=== PATIENT | female | born 1940 | race Caucasian/White ===

== ENCOUNTER 2020-11-28 15:49 | Outpatient (REF) | payer MEDICARE, OTHER, SELFPAY ==
--- NOTE | ~2020-11-28 | MM_ITS ---
EXAMINATION: MM SCREENING DIGITAL BREAST TOMOSYNTHESIS, RIGHT CLINICAL INFORMATION: Prior history left mastectomy for breast cancer 2015. Right excisional biopsy for ADH 01/25/2016. Due for yearly exam. COMPARISON: Mammography: 09/15/2019, 09/10/2018, 08/02/2017, 07/31/2016, 01/25/2016 TECHNIQUE: Digital breast tomosynthesis is performed in both the craniocaudal and mediolateral oblique views along with computer-aided detection (CAD). Synthesized 2D images are generated from the tomosynthesis. FINDINGS: The breasts are heterogeneously dense, which may obscure small masses (ACR BI-RADS breast composition Category c). Parenchymal pattern is similar to prior exams. There is some minor scarring posterior upper breast consistent with the lumpectomy 2016. There is a biopsy clip marker again seen mid upper outer quadrant. There is no developing density or interval mass or architectural abnormality. There are scattered punctate and fine and vascular calcifications. No significant changes. MM/MM tomosynthesis screening RT IMPRESSION: No significant changes from prior exams. ASSESSMENT: BI-RADS 2: Benign RECOMMENDATION: Routine annual mammography screening. This patient's information was entered into a reminder system with a target due date for their next mammogram.
== END 2020-11-28 15:50 | disposition home or self-care (01) ==
LOC: HO.MAMMO 15:49
PROVIDERS: PCP Internal Medicine; Visit Provider Internal Medicine
DX: Z12.31 Encounter for screening mammogram for malignant neoplasm of breast (principal)
CPT/HCPCS: 77063; 77067

== ENCOUNTER → 2020-12-12 15:36 | Outpatient (BNV) | payer MEDICARE, OTHER, SELFPAY | PROVIDERS: PCP Internal Medicine; Visit Provider Internal Medicine | DX: C50.911 Malignant neoplasm of unspecified site of right female breast (principal) | CPT/HCPCS: 99213; 99214 ==

== ENCOUNTER 2022-05-12 09:00 | Outpatient (REF) | payer MEDICARE, OTHER, SELFPAY ==
[2022-05-12 11:10] LABS: MANUAL DIFF FLAG NO
[2022-05-12 11:16] LABS: Basophils Percent Auto 0.3 % (0-2); Eosinophils Percent Auto 0.6 % (0-4); Hematocrit 38.8 % (37.0-47.0); Hemoglobin 12.7 g/dl (12.0-16.0); Imm Gran Abs Auto 0.01 X10*3/uL (0.00-0.03); Imm Gran Pct Auto 0.3 % (0.0-0.4); Lymphocytes Absolute Auto 1.6 X10*3/uL (1.2-4.9); Lymphocytes Percent Auto 49.1 % (20-40); Mean Corpuscular HGB Conc 32.7 g/dl (31.0-35.0); Mean Corpuscular Hemoglobin 31.6 pg (27.0-33.0); Mean Corpuscular Volume 96.5 fL (80.0-98.0); Mean Platelet Volume 10.7 fL (9.4-12.3); Monocytes Absolute Auto 0.5 X10*3/uL (0.1-1.2); Monocytes Percent Auto 15.5 % (2-11); Neutrophils Absolute Auto 1.1 x10*3/uL (2.0-8.3); Neutrophils Percent Auto 34.2 % (45-73); Platelet Count 218 X10*3/uL (160-400); Red Blood Count 4.02 X10*6/uL (4.20-5.50); Red Cell Distribution Width 12.9 % (11.0-16.0); White Blood Count 3.2 X10*3/uL (4.8-10.8)
[2022-05-12 11:28] LABS: Appearance Urine CLEAR; Color Urine YELLOW; Glucose Urine UA NEG (NEG); Leukocyte Esterase Urine NEG (NEG); Nitrite Urine NEG (NEG); Specific Gravity - Urine 1.025 (1.005-1.025); Urine Blood TRACE (NEG); Urine Ketones NEG (NEG); Urine Protein NEG (NEG-TRACE)
[2022-05-12 11:38] LABS: Alanine Aminotransferase 13 U/L (0-31); Alkaline Phosphatase 60 U/L (39-117); Anion Gap 15 (12-20); Aspartate Amino Transferase 16 U/L (5-31); Bilirubin Total 0.4 mg/dL (0.0-1.0); Blood Urea Nitrogen 15 mg/dL (9-16); Carbon Dioxide 26 mmol/L (22-29); Chloride 105 mmol/L (96-108); Cholesterol 142 mg/dL; Estimated Glomerular Filt Rate > 60; Glucose Fasting 101 mg/dL (60-99); HDL Cholesterol 56 mg/dL; LDL Cholesterol Calculated 75 mg/dl; Potassium 4.5 mmol/L (3.3-5.1); Sodium 141 mmol/L (135-145); Triglycerides 58 mg/dL
[2022-05-12 11:57] LABS: Bacteria Urine 2+ /LPF; RBC Urine 0-2 /HPF (0); Squamous Epithelial Cell Urine TRACE /LPF
[2022-05-12 12:03] LABS: Thyroid Stimulating Hormone 0.64 uIU/mL (0.32-4.0); Vitamin D 25-OH Total 69.3 ng/mL (>30)
== END 2022-05-12 09:01 | disposition home or self-care (01) ==
LOC: HO.HMGCLDS 09:00
PROVIDERS: PCP Internal Medicine; Visit Provider Internal Medicine
DX: Z00.00 Encounter for general adult medical examination without abnormal findings (principal); I10 Essential (primary) hypertension; E78.00 Pure hypercholesterolemia, unspecified
CPT/HCPCS: 36415; 80053; 80061; 81001; 82306; 84443; 85025

== ENCOUNTER 2022-12-08 13:01 | Outpatient (REF) | payer MEDICARE, OTHER, SELFPAY ==
[2022-12-08 13:34] LABS: MANUAL DIFF FLAG NO
[2022-12-08 13:36] LABS: Appearance Urine Clear; Color Urine Yellow; Glucose Urine UA Negative (Negative); Leukocyte Esterase Urine Small (1+) (Negative); Nitrite Urine Negative (Negative); PH 7.5 (5.0-9.0); UMIC TRIGGER UA YES; Urine Blood Negative (Negative); Urine Ketones Negative (Negative); Urine Protein Negative (Neg-Trace)
[2022-12-08 13:45] LABS: Bacteria Urine None Seen (None Seen); Hyaline Casts Urine 0-2 /LPF (0-2); RBC Urine 0-2 /HPF (0-2); Squamous Epithelial Cell Urine 0-2 /HPF (0-2); WBC Urine 0-5 /HPF (0-5)
[2022-12-08 13:46] LABS: Basophils Absolute Auto 0.1 X10*3/uL (0.0-0.2); Basophils Percent Auto 0.8 % (0-2); Eosinophils Absolute Auto 0.1 X10*3/uL (0.0-0.4); Eosinophils Percent Auto 1.9 % (0-4); Hematocrit 38.5 % (37.0-47.0); Hemoglobin 12.8 g/dl (12.0-16.0); Imm Gran Abs Auto 0.03 X10*3/uL (0.00-0.03); Imm Gran Pct Auto 0.5 % (0.0-0.4); Lymphocytes Absolute Auto 1.9 X10*3/uL (1.2-4.9); Mean Corpuscular HGB Conc 33.2 g/dl (31.0-35.0); Mean Corpuscular Hemoglobin 32.3 pg (27.0-33.0); Mean Corpuscular Volume 97.2 fL (80.0-98.0); Mean Platelet Volume 10.7 fL (9.4-12.3); Monocytes Absolute Auto 0.6 X10*3/uL (0.1-1.2); Neutrophils Absolute Auto 3.7 x10*3/uL (2.0-8.3); Neutrophils Percent Auto 56.8 % (45-73); Platelet Count 261 X10*3/uL (160-400); Red Blood Count 3.96 X10*6/uL (4.20-5.50); Red Cell Distribution Width 13.1 % (11.0-16.0); White Blood Count 6.4 X10*3/uL (4.8-10.8)
== END 2022-12-08 13:02 | disposition home or self-care (01) ==
LOC: HO.HMGCLDS 13:01
PROVIDERS: PCP Internal Medicine; Visit Provider Internal Medicine
DX: I10 Essential (primary) hypertension (principal)
CPT/HCPCS: 36415; 81001; 85025

== ENCOUNTER 2023-07-08 07:26 | Outpatient (REF) | payer MEDICARE, OTHER, SELFPAY ==
--- NOTE | ~2023-07-08 | MM_ITS ---
EXAMINATION: MM SCREENING DIGITAL BREAST TOMOSYNTHESIS, RIGHT CLINICAL INFORMATION: Screening. Asymptomatic. The patient is status post left mastectomy. COMPARISON: Mammography: This study is compared with prior exams dating back to TECHNIQUE: Digital breast tomosynthesis is performed in both the craniocaudal and mediolateral oblique views along with computer-aided detection (CAD). Synthesized 2D images are generated from the tomosynthesis. FINDINGS: There are scattered areas of fibroglandular density (ACR BI-RADS breast composition Category b). In the upper outer quadrant of the right breast, there are 2 groups of calcification. The smaller of the 2 groups is located in the anterior depth.. The larger group of calcifications located in the deep third of the breast. Magnification imaging of these calcifications is indicated. There are other, scattered calcifications present in the right which are mammographically benign. These are distinct from the calcifications recommended for additional mammographic imaging. There is a tissue marker present in the upper outer quadrant of the right breast from prior benign percutaneous biopsy. MM/MM tomosynthesis screening RT IMPRESSION: 2 groups of calcifications in the upper-outer quadrant of the right breast warrant additional mammographic imaging with magnification. This should also include a full lateral view of the right breast with tomosynthesis. This lateral view be helpful in assessing the pattern of the calcifications in question. ASSESSMENT: BI-RADS BI-RADS 0 - Incomplete: Needs additional Imaging. RECOMMENDATION: Additional views of the right breast Radiology department staff will contact the patient for additional imaging. Additional Imaging required This examination should not preclude the clinical evaluation of a suspicious palpable abnormality. This patient's information was entered into a reminder system with a target due date for their next mammogram.
== END 2023-07-08 07:27 | disposition home or self-care (01) ==
LOC: HO.MAMMO 07:26
PROVIDERS: Visit Provider Internal Medicine
DX: Z12.31 Encounter for screening mammogram for malignant neoplasm of breast (principal)
CPT/HCPCS: 77063; 77067

== ENCOUNTER → 2023-07-08 07:45 | Outpatient (BNV) | payer MEDICARE, OTHER, SELFPAY | PROVIDERS: Visit Provider Radiology Diagnostic Radiology | DX: Z12.31 Encounter for screening mammogram for malignant neoplasm of breast (principal); Z90.12 Acquired absence of left breast and nipple | CPT/HCPCS: 77063; 77067 ==

== ENCOUNTER 2023-07-29 08:49 | Outpatient (REF) | payer MEDICARE, OTHER, SELFPAY ==
--- NOTE | ~2023-07-29 | MM_ITS ---
EXAMINATION: MM DIAGNOSTIC DIGITAL MAMMOGRAPHY, RIGHT CLINICAL INFORMATION: 83-year-old female with complicated past history including left mastectomy for breast CA, and 2 site right stereotactic biopsy in 2015, of which the anterior marked by a cylinder biopsy was benign, however posterior biopsy marked by a top hat clip revealed atypical ductal hyperplasia (ADH), and excised. Patient now presenting for diagnostic mammography for increasing calcifications at 2 sites. COMPARISON: Mammography: 07/08/2023, 11/28/2020, 09/15/2019, 08/02/2017, 07/31/2016, Stereotactic biopsy (dual site) at [facility] 12/15/2015, and additional imaging at [facility] 12/09/2015, 12/06/2015, 10/15/2014, and dating back to 2012. TECHNIQUE: Digital mammography is performed in the following views: Spot magnification 2-D views in the right CC and ML projections. FINDINGS: There are scattered areas of fibroglandular density (ACR BI-RADS breast composition Category b). There are linear calcifications in the approximate 12:00 axis right breast, mid depth, which have not changed since 2020 and are benign. No further follow-up recommended. Markedly increasing microcalcifications are present at the lumpectomy site (which yielded ADH) approximate 9:00 axis right breast, posterior one third. These have a fine, pleomorphic appearance with several posterior radiating linear calcified structures, possibly ducts, although blood vessels may be a possibility although classic tram tracking is not present. Recommend stereotactic biopsy of these calcifications using a lateral to medial approach. In the medial 3:00 right breast, there is a subtle focus of increasing microcalcifications the similar characteristics, indeterminant, but given patient's high risk also recommended for stereotactic biopsy at the same time as the above biopsy. These could not be definitively seen on prior exams. Recommend a craniocaudal approach for these calcifications. MM/MM added views RT IMPRESSION: 2 site stereotactic biopsy recommended right breast at 9:00 and 3:00 as detailed above. Increasing pleomorphic fine calcifications are present. Extensive discussion was held with the patient and her . The patient degrees and understands the plan for 2 site stereotactic biopsy. ASSESSMENT: BI-RADS BI-RADS 4 - Suspicious finding RECOMMENDATION: Biopsy recommended
== END 2023-07-29 08:50 | disposition home or self-care (01) ==
LOC: HO.MAMMO 08:49
PROVIDERS: PCP Internal Medicine; Visit Provider Internal Medicine
DX: R92.1 Mammographic calcification found on diagnostic imaging of breast (principal)
CPT/HCPCS: 77065

== ENCOUNTER → 2023-07-29 09:00 | Outpatient (BNV) | payer MEDICARE, OTHER, SELFPAY | PROVIDERS: PCP Internal Medicine; Visit Provider Radiology Diagnostic Radiology | DX: R92.0 Mammographic microcalcification found on diagnostic imaging of breast (principal) | CPT/HCPCS: 77065 ==

== ENCOUNTER 2023-08-07 08:14 | Outpatient (AMB) | payer MEDICARE, OTHER, SELFPAY ==
--- NOTE | 2023-08-07 08:21 | A.OFFVIS_ITS ---
Intake Vital Signs 08/07/23 08:27 Height 5 ft 1 in Weight 103 lb BMI 19.5 Intake Visit Reasons: Stereo Bx calcs x2 areas 3 oclock and 9 o'clock Intake Note: Patient is seen in office for stereo biopsy consult for right breast calcifications x2 areas 3 o'clock & 9 o'clock. Patient c/o: reports no breast complaints at this time. mm:07/29/23 Property Field Inspector Required: No Accompanied by: Spouse Allergies Iodinated Contrast Media [IV CONTRAST] Allergy (Severe, Unverified 08/07/23 08:33) ANAPHYLAXIS codeine Allergy (Unknown, Verified 08/07/23 08:33) Unknown ibuprofen Allergy (Unknown, Verified 08/07/23 08:33) swelling morphine Allergy (Unknown, Verified 08/07/23 08:33) confusion/disorientationh IVP dye Allergy (Unknown, Uncoded 08/07/23 08:33) swelling HPI Stereo Bx calcs x2 areas 3 oclock and 9 o'clock HPI Details 83-year-old female here for right [address] calcifications. She had undergone a screening mammogram last month and was noted to have calcifications on the left breast. She was brought in for targeted diagnostic mammogram. This showed increasing, pleomorphic fine calcifications at the 09:00 o'clock and 03:00 o'clock positions of the right breast. A stereotactic biopsy was therefore recommended by the radiologist She otherwise denies any palpable breast masses or any nipple or skin changes. Her menarche was at age of 12. Her 1st was at age of 24. She had pregnancies. She had menopause in her 50s. She actually had left breast cancer and had undergone mastectomy in her late 30s. She is not interested in genetic testing however. [facility] Medical History (Updated 08/06/23 @ 12:03 by Isaías Horvath MD) Breast calcification, right HTN (hypertension) High cholesterol Surgical History H/O discectomy Hx of cholecystectomy History of modified radical mastectomy Family History Daughter Breast cancer Son Skin cancer Review of Systems Const Denies chills and Denies fever(s) Card Denies chest pain, Denies dyspnea and Denies dyspnea on exertion Resp Denies cough, Denies dyspnea and Denies dyspnea on exertion GI Denies hematochezia and Denies change in bowel habits Denies hematuria Musc Denies back pain and Denies limited range of motion Neuro Denies focal weakness and Denies convulsions Psych Denies depression and Denies mood swings Physical Exam Vital Signs: BMI result Body Mass Index 19.5 Const General: comfortable and no acute distress Orientation/consciousness: patient oriented x3 Neck Neck: Yes no lymphadenopathy Chest Other: mastectomy on the left breast; no palpable breast masses or any nipple or skin changes the right. No axillary lymphadenopathy Resp Auscultation: clear to auscultation bilaterally Cardio Rhythm: regular rhythm GI Palpation (GI): Soft to palpation, nontender and no guarding Neuro General: patient oriented x3 Assessment & Plan Assessment & Plan (1) Breast calcification, right: Code(s): R92.1 - Mammographic calcification found on diagnostic imaging of breast Plan: Her mammogram shows pleomorphic calcifications at the 03:00 o'clock and 9 o'clock position of the right breast. A stereotactic biopsy had been recommended by the radiologist. I reviewed with her the technique of this procedure. I will see her again in the office next week to discuss the path report. She does have personal history of breast cancer. At this, she does not want to proceed with genetic testing. Orders: Orders MM stereotactic biopsy RT 08/06/23 R92.1 - Mammographic calcification found on diagnostic imaging of breast MM stereotactic biopsy ea add 08/06/23 R92.1 - Mammographic calcification found on diagnostic imaging of breast Coding Level of Care Code New Pt Level 3 (45823) Diagnoses Breast calcification, right R92.1
[2023-08-07 08:27] VITALS: BMI 19.5
== END 2023-08-07 09:26 | disposition home or self-care (01) ==
PROVIDERS: PCP Internal Medicine; Visit Provider Surgery
DX: R92.1 Mammographic calcification found on diagnostic imaging of breast (principal)
CPT/HCPCS: 99203

== ENCOUNTER 2023-08-07 09:27 | Outpatient (REF) | payer MEDICARE, OTHER, SELFPAY ==
--- NOTE | ~2023-08-07 | MM_ITS ---
EXAMINATION: STEREOTACTIC TOMOSYNTHESIS-GUIDED VACUUM-ASSISTED 2 SITE BREAST BIOPSY, RIGHT SPECIMEN RADIOGRAPH, RIGHT POST PROCEDURE DIGITAL MAMMOGRAM, RIGHT CLINICAL INFORMATION: Calcifications far lateral axis, concerning, recommended for biopsy. Calcifications far medial axis just medial to a calcified vessel, also recommended for biopsy. COMPARISON: 07/29/2023, 07/08/2023, 11/28/2020. TECHNIQUE/PROCEDURE: Informed consent was obtained from the patient after discussion of the benefits, risks, and alternatives to biopsy today. Patient appeared to understand. Gave opportunity for questions. Patient signed consent form. BIOPSY TABLE: [employer]O Prone Biopsy System. LESION: Calcifications x2, 9:00 axis, and 3:00 axis. LOCAL ANESTHESIA: 5 mL 1% lidocaine; 10 mL 1% lidocaine with epinephrine. DERMATOTOMY: Single skin nikki dermatotomy performed at both sites NEEDLE: Travel.ruiva 9-gauge vacuum assisted core biopsy device for both sites APPROACH: Craniocaudal for both sites. TARGETING: Combination of digital breast tomosynthesis and stereotactic digital mammography used for targeting. CORES: 5 at 9:00, 7 at 3:00. CLIP: Easy MetricsurMark top hat-shaped marker at 9:00, buckle-shaped clip at the 3:00 lesion. SPECIMEN RADIOGRAPH: Specimen radiograph is taken in separate room using digital mammography. The index calcifications are in the excised cores, at both sites. POST PROCEDURE UNILATERAL DIGITAL MAMMOGRAM: The post biopsy mammogram is performed in separate room using separate digital mammography equipment from the biopsy procedure. CC and ML views are obtained. There are scattered areas of fibroglandular density (breast composition category: b). The clip markers are both is in accurate position. The calcifications are markedly decreased at the biopsy site. No gross hematoma. The patient tolerated the procedure well. No immediate complications. Home instructions reviewed with the patient. Final pathology results are pending. MM/MM stereotactic biopsy ea add IMPRESSION: 1. Digital tomosynthesis-guided core biopsy right breast with dual clip placement. 2. Specimen radiograph taken and post procedure mammogram. There is satisfactory positioning of both of the biopsy clips. 3. Final pathology results pending. An addendum report will be issued.
--- NOTE | ~2023-08-07 | MM_ITS ---
EXAMINATION: STEREOTACTIC TOMOSYNTHESIS-GUIDED VACUUM-ASSISTED 2 SITE BREAST BIOPSY, RIGHT SPECIMEN RADIOGRAPH, RIGHT POST PROCEDURE DIGITAL MAMMOGRAM, RIGHT CLINICAL INFORMATION: Calcifications far lateral axis, concerning, recommended for biopsy. Calcifications far medial axis just medial to a calcified vessel, also recommended for biopsy. COMPARISON: 07/29/2023, 07/08/2023, 11/28/2020. TECHNIQUE/PROCEDURE: Informed consent was obtained from the patient after discussion of the benefits, risks, and alternatives to biopsy today. Patient appeared to understand. Gave opportunity for questions. Patient signed consent form. BIOPSY TABLE: [employer] Prone Biopsy System. LESION: Calcifications x2, 9:00 axis, and 3:00 axis. LOCAL ANESTHESIA: 5 mL 1% lidocaine; 10 mL 1% lidocaine with epinephrine. DERMATOTOMY: Single skin nikki dermatotomy performed at both sites NEEDLE: MValve technologiesiva 9-gauge vacuum assisted core biopsy device for both sites APPROACH: Craniocaudal for both sites. TARGETING: Combination of digital breast tomosynthesis and stereotactic digital mammography used for targeting. CORES: 5 at 9:00, 7 at 3:00. CLIP: GlucoVistaurMark top hat-shaped marker at 9:00, buckle-shaped clip at the 3:00 lesion. SPECIMEN RADIOGRAPH: Specimen radiograph is taken in separate room using digital mammography. The index calcifications are in the excised cores, at both sites. POST PROCEDURE UNILATERAL DIGITAL MAMMOGRAM: The post biopsy mammogram is performed in separate room using separate digital mammography equipment from the biopsy procedure. CC and ML views are obtained. There are scattered areas of fibroglandular density (breast composition category: b). The clip markers are both is in accurate position. The calcifications are markedly decreased at the biopsy site. No gross hematoma. The patient tolerated the procedure well. No immediate complications. Home instructions reviewed with the patient. Final pathology results are pending. MM/MM stereotactic biopsy RT IMPRESSION: 1. Digital tomosynthesis-guided core biopsy right breast with dual clip placement. 2. Specimen radiograph taken and post procedure mammogram. There is satisfactory positioning of both of the biopsy clips. 3. Final pathology results pending. An addendum report will be issued.
[2023-08-07] MEDS: Lidocaine HCl 1 % 20 ML VIAL 8 ML SUBCUT (13:00)
[2023-08-07] MEDS: Sodium Bicarbonate 8.4% 50 MEQ/50 ML VIAL SUBCUT (13:01)
== END 2023-08-07 09:28 | disposition home or self-care (01) ==
LOC: HO.MAMMO 09:27
PROVIDERS: PCP Internal Medicine; Visit Provider Surgery
DX: R92.1 Mammographic calcification found on diagnostic imaging of breast (principal)
CPT/HCPCS: 19081; 19082; 88305; 88341; 88342; 88360; 99202; A4648

== ENCOUNTER → 2023-08-07 09:34 | Outpatient (BNV) | payer MEDICARE, OTHER, SELFPAY | PROVIDERS: PCP Internal Medicine; Visit Provider Radiology Diagnostic Radiology | DX: R92.1 Mammographic calcification found on diagnostic imaging of breast (principal) | CPT/HCPCS: 19081; 19082 ==

== ENCOUNTER → 2023-08-14 09:04 | Outpatient (BNVA) | payer MEDICARE, OTHER, SELFPAY | PROVIDERS: PCP Internal Medicine; Visit Provider Surgery | DX: R92.1 Mammographic calcification found on diagnostic imaging of breast (principal); C50.812 Malignant neoplasm of overlapping sites of left female breast; Z85.3 Personal history of malignant neoplasm of breast | CPT/HCPCS: 99212 ==

== ENCOUNTER 2023-08-14 09:06 | Outpatient (AMB) | payer MEDICARE, OTHER, SELFPAY ==
[2023-08-14 09:07] VITALS: BP 130/72; PULSE 82; O2SAT 98; BMI 19.9
--- NOTE | 2023-08-14 09:07 | A.OFFVIS_ITS ---
Intake Vital Signs 08/14/23 09:07 Height 5 ft 1 in Weight 105 lb 6.095 oz BMI 19.9 BP 130/72 Blood Pressure Location Rt brachial Position Sitting Pulse 82 Pulse Source Pulse Oximeter Pulse Oximetry (%) 98 Oxygen Delivery Method Room Air Intake Visit Reasons: Right breast calcs x2 areas, biopsy results Intake Note: Pt presents to the office today for right breast calcs x2 areas, biopsy results. Pt states she is feeling well and denies any concerns at this time. Allergies Iodinated Contrast Media [IV CONTRAST] Allergy (Severe, Unverified 08/14/23 09:12) ANAPHYLAXIS codeine Allergy (Unknown, Verified 08/14/23 09:12) Unknown ibuprofen Allergy (Unknown, Verified 08/14/23 09:12) swelling morphine Allergy (Unknown, Verified 08/14/23 09:12) confusion/disorientationh IVP dye Allergy (Unknown, Uncoded 08/14/23 09:12) swelling Medication List - Last Reconciled 08/14/23 by Isaías Horvath MD ascorbic acid (vitamin C) (Vitamin C) 1 mg PO DAILY atorvastatin 1 tab PO DAILY cholecalciferol (vitamin D3) (Vitamin D3) 50 mcg PO DAILY chondroitin sulfate-vit C-Mn 400-60-2.5 mg caps PO losartan 1 tab PO DAILY mecobalamin (vitamin B12) (B12 Active) mcg PO multivitamin caps HPI Right breast calcs x2 areas, biopsy results HPI Details 83-year-old female here for right [address] calcifications. She had undergone a screening mammogram last month and was noted to have calcifications on the left breast. She was brought in for targeted diagnostic mammogram. This showed increasing, pleomorphic fine calcifications at the 09:00 o'clock and 03:00 o'clock positions of the right breast. A stereotactic biopsy was therefore Done last 08/07/2023. She is here to discuss the path report. She tolerated the biopsy well. She denies any new complaints. She otherwise denies any palpable breast masses or any nipple or skin changes. Her menarche was at age of 12. Her 1st was at age of 24. She had pregnancies. She had menopause in her 50s. She actually had left breast cancer and had undergone mastectomy in her late 30s. She is not interested in genetic testing however. [facility] Medical History (Updated 08/14/23 @ 11:39 by Isaías Horvath MD) Invasive ductal carcinoma of breast, female Breast calcification, right HTN (hypertension) High cholesterol Surgical History H/O discectomy Hx of cholecystectomy History of modified radical mastectomy Family History Daughter Breast cancer Son Skin cancer (Updated 08/14/23 @ 09:14 by Gela Lawrence MA) Household Members: Spouse Housing: House Alcohol intake: current Alcohol intake frequency: holidays/special occasions only Patient Tobacco Use Status: Never used Tobacco Current occupational status: employed Review of Systems Const Denies chills and Denies fever(s) Card Denies chest pain, Denies dyspnea and Denies dyspnea on exertion Resp Denies cough, Denies dyspnea and Denies dyspnea on exertion GI Denies hematochezia and Denies change in bowel habits Denies hematuria Musc Denies back pain and Denies limited range of motion Neuro Denies focal weakness and Denies convulsions Psych Denies depression and Denies mood swings Physical Exam Vital Signs: Last Vital Signs Pulse 82 08/14/23 09:07 BP 130/72 08/14/23 09:07 Pulse Ox 98 08/14/23 09:07 Oxygen Delivery Method Room Air 08/14/23 09:07 BMI result Body Mass Index 19.9 Const General: comfortable and no acute distress Orientation/consciousness: patient oriented x3 Neck Neck: Yes no lymphadenopathy Chest Other: ecchymosis on the biopsy sites on the right breast, no palpable masses, no hematomas, no axillary lymphadenopathy, mastectomy site on the left breast seen Resp Auscultation: clear to auscultation bilaterally Cardio Rhythm: regular rhythm GI Palpation (GI): Soft to palpation, nontender and no guarding Neuro General: patient oriented x3 Assessment & Plan Assessment & Plan (1) Breast calcification, right: Code(s): R92.1 - Mammographic calcification found on diagnostic imaging of breast Plan: Unfortunately, her path report shows an invasive ductal carcinoma on the biopsy site at what appears to be the 9 o'clock position. I will review this with the radiologist I had a long discussion with her about options. I explained the option of proceeding with breast conservation therapy with lumpectomy, sentinel biopsy. She may require radiation to the right breast to complete treatment although with her age, this may be held. The other option is to proceed with full mastectomy with sentinel biopsy. She wants to go for a lumpectomy and sentinel biopsy. In the meantime I am going to send her to Dr. Flynn of Oncology as well before the surgery. Her was with her during the visit She understands the risks of the procedure including but not limited to bleeding, infections, hematoma, postop pain, inherent risks of anesthesia. (2) Invasive ductal carcinoma of breast, female: Code(s): C50.919 - Malignant neoplasm of unspecified site of unspecified female breast Orders: Orders MM needle loc RT 08/14/23 C50.919 - Malignant neoplasm of unspecified site of unspecified female breast Referrals Hematology & Oncology Referral R92.1 - Mammographic calcification found on diagnostic imaging of breast Coding Level of Care Code Est Pt Level 4 (48601) Diagnoses Breast calcification, right R92.1 Invasive ductal carcinoma of breast, female C50.919
== END 2023-08-14 09:33 | disposition home or self-care (01) ==
PROVIDERS: PCP Internal Medicine; Visit Provider Surgery
DX: R92.1 Mammographic calcification found on diagnostic imaging of breast (principal); C50.919 Malignant neoplasm of unspecified site of unspecified female breast
CPT/HCPCS: 99214

== ENCOUNTER 2023-08-21 09:45 | Outpatient (REF) | payer MEDICARE, OTHER, SELFPAY ==
--- NOTE | ~2023-08-21 | MM_ITS ---
EXAMINATION: MM MAMMOGRAM GUIDED RFID LOCALIZATION BREAST, RIGHT CLINICAL INFORMATION: Invasive ductal carcinoma, grade 1, SITE A, marked by a top hat-shaped clip. Site B was benign. COMPARISON: 08/07/2023, 07/29/2023 TECHNIQUE NEEDLE LOC: Proper informed consent is obtained from the patient after discussion of the procedure, potential risks and complications, and alternatives including declining the procedure today. Patient was given an opportunity for questions. The patient appeared to understand. The patient consented to the procedure and signed the consent form. GUIDANCE: Digital mammography. APPROACH: Cranio-caudal. TARGET: Calcifications and top hat-shaped clip. ANESTHESIA: carbonated lidocaine 1%: 4 mL. LOCALIZATION SYSTEM: -[employer] LOCallizer Wire-Free Guidance System with 12g needle applicator. -Length: 7 cm. -RADIOFREQUENCY TAG: ID # [id number] DERMATOTOMY: Single skin-nikki dermatotomy performed. RF Tag ID confirmed with LOCalizer Guidance System prior to placement. The skin is prepped and local anesthesia administered. The needle is positioned and RFID tag deployed. Final images demonstrate the LOCalizer RF tag to reside immediately posterolateral to the RF ID tag by 2.5 mm. Of note, the tag sits within the suspicious calcifications. On the mediolateral view, the tag resides approximately 1.5 mm low the top hat biopsy clip, within the abnormal calcifications. Please refer to the final 2 images for annotated images. The patient tolerated the procedure well and had no immediate complications. Dressing placed and home instructions reviewed. MM/MM needle loc RT IMPRESSION: -Status post right breast RFID localization. -Please refer to the final 2 images for annotations.
[2023-08-21] MEDS: Sodium Bicarbonate 8.4% 50 MEQ/50 ML VIAL SUBCUT (11:12)
[2023-08-21] MEDS: Lidocaine HCl 1 % 20 ML VIAL 9 ML SUBCUT (11:12)
== END 2023-08-21 09:46 | disposition home or self-care (01) ==
LOC: HO.MAMMO 09:45
PROVIDERS: PCP Internal Medicine; Visit Provider Surgery
DX: C50.911 Malignant neoplasm of unspecified site of right female breast (principal)
CPT/HCPCS: 19281; C1819

== ENCOUNTER 2023-08-28 06:01 | Day surgery (SDC) | payer MEDICARE, OTHER, SELFPAY ==
[2023-08-26 09:40] VITALS: BMI 19.8
--- NOTE | 2023-08-27 09:15 | HO.ANESPROP2 ---
Documented by User: Shelly Pierson NP 08/27/23 09:15 HPI - Anesthesia Eval Consult details Narrative: 83yo F for Right Breast Lumpectomy w/LOCalizer,[place] Node Biopsy PMFSH Active Problems Active Problems: All Active Problems (Updated 08/26/23 @ 09:54 by Kristen Flynn MD) Lobular hyperplasia, atypical, breast (Chronic) Invasive ductal carcinoma of breast, female (Acute) Breast calcification, right (Acute) Past Medical History Medical History Elevated cholesterol History of left breast cancer Invasive ductal carcinoma of breast, female Breast calcification, right HTN (hypertension) High cholesterol Family History Family History Daughter Breast cancer Son Skin cancer Surgical History Surgical History Hx of excision of mass Hx of right breast biopsy H/O discectomy Hx of cholecystectomy History of modified radical mastectomy Social History Social History (Updated 08/26/23 @ 09:59 by Kasey Daniel) Household Members: Spouse Housing: House Alcohol intake: current Alcohol intake frequency: holidays/special occasions only Patient Tobacco Use Status: Never used Tobacco Use of substances other than those prescribed or required for medical reasons: No Are you DNR?: No Advance Directives: No Advance Directives Information Provided: Yes service: No Current occupational status: employed Meds Allergies Allergy/AdvReac Type Severity Reaction Status Date / Time Iodinated Contrast Media Allergy Severe ANAPHYLAXIS Verified 08/28/23 06:14 [IV CONTRAST] ibuprofen Allergy Intermediate swelling Verified 08/28/23 06:14 morphine Allergy Intermediate confusion/d Verified 08/28/23 06:14 isorientati onh codeine Allergy Unknown Unknown Verified 08/28/23 06:14 Home Medications Medication Instructions Recorded Confirmed Last Taken Type ascorbic acid (vitamin C) 500 mg 1 mg PO DAILY 12/12/20 08/26/23 Unknown History tablet (Vitamin C) atorvastatin 10 mg tablet 1 tab PO DAILY 12/12/20 08/26/23 Unknown History cholecalciferol (vitamin D3) 50 50 mcg PO DAILY 12/12/20 08/26/23 Unknown History mcg (2,000 unit) capsule (Vitamin D3) losartan 50 mg tablet 1 tab PO DAILY 12/12/20 08/26/23 08/27/23 History mecobalamin (vitamin B12) 1,000 1,000 mcg PO DAILY 12/12/20 08/26/23 Unknown History mcg chewable tablet (B12 Active) chondroitin sulfate A sodium 400 400 mg PO DAILY 08/26/23 08/26/23 Unknown History mg capsule multivitamin 1 tab PO DAILY 08/26/23 08/26/23 Unknown History Exam Height,Weight and Vital Signs: Height 5 ft 1 in Weight 47.627 kg Assessment and Plan Assessment Anesthesia Assessment: Chart Reviewed Documented by User: Matt Dey MD 08/28/23 07:27 [facility] Past Medical History Medical History Elevated cholesterol History of left breast cancer Invasive ductal carcinoma of breast, female Breast calcification, right HTN (hypertension) High cholesterol Family History Family History Daughter Breast cancer Son Skin cancer Family history of problems with anesthesia: No Surgical History Surgical History Hx of excision of mass Hx of right breast biopsy H/O discectomy Hx of cholecystectomy History of modified radical mastectomy History of Problems with Anesthesia: No Social History Social History (Updated 08/26/23 @ 09:59 by Kasey Daniel) Household Members: Spouse Housing: House Alcohol intake: current Alcohol intake frequency: holidays/special occasions only Patient Tobacco Use Status: Never used Tobacco Use of substances other than those prescribed or required for medical reasons: No Are you DNR?: No Advance Directives: No Advance Directives Information Provided: Yes service: No Current occupational status: employed Meds Allergies Allergy/AdvReac Type Severity Reaction Status Date / Time Iodinated Contrast Media Allergy Severe ANAPHYLAXIS Verified 08/28/23 06:14 [IV CONTRAST] ibuprofen Allergy Intermediate swelling Verified 08/28/23 06:14 morphine Allergy Intermediate confusion/d Verified 08/28/23 06:14 isorientati onh codeine Allergy Unknown Unknown Verified 08/28/23 06:14 Home Medications Medication Instructions Recorded Confirmed Last Taken Type ascorbic acid (vitamin C) 500 mg 1 mg PO DAILY 12/12/20 08/26/23 Unknown History tablet (Vitamin C) atorvastatin 10 mg tablet 1 tab PO DAILY 12/12/20 08/26/23 Unknown History cholecalciferol (vitamin D3) 50 50 mcg PO DAILY 12/12/20 08/26/23 Unknown History mcg (2,000 unit) capsule (Vitamin D3) losartan 50 mg tablet 1 tab PO DAILY 12/12/20 08/26/23 08/27/23 History mecobalamin (vitamin B12) 1,000 1,000 mcg PO DAILY 12/12/20 08/26/23 Unknown History mcg chewable tablet (B12 Active) chondroitin sulfate A sodium 400 400 mg PO DAILY 08/26/23 08/26/23 Unknown History mg capsule multivitamin 1 tab PO DAILY 08/26/23 08/26/23 Unknown History Exam Airway Mallampati Class: II TM Dist: >3cm Neck ROM: Full Denture: Upper and Lower Assessment and Plan Assessment Anesthesia Assessment: Anesthesia Plan Discussed Final Anesthetic Review Family History of Problems with Anesthesia: No History of Problems with Anesthesia: No NPO: Yes ASA Class: II Final Preanesthetic Review: No Changes in Pt Med Stat, Meds/Allgs Chart Reviewed, Consent Obtained/Reviewed and Anes Risks/Benef Reviewed Patient Risk: Intermediate Procedure Risk: Low Anesthetic Plan Anesthetic Plan: GA Disposition: Standard PACU
--- NOTE | ~2023-08-28 | MM_ITS ---
EXAMINATION: RFID LOCALIZATION SPECIMEN FROM THE RIGHT BREAST CLINICAL INFORMATION: Invasive ductal carcinoma, grade 1, right breast COMPARISON: 08/21/2023 TECHNIQUE: Single view of the surgical specimen was obtained. FINDINGS: Specimen radiograph demonstrates the presence of numerous suspicious microcalcifications arranged in a radial pattern, the cylinder biopsy clip, and calcified vessels. The RFID chip, and top hat biopsy clip were reportedly contained within a second specimen was not radiographed as per Dr. Horvath. MM/MM surgical specimen IMPRESSION: Excision of the calcifications as detailed above. The RFID chip, and top hat biopsy clip were reportedly contained within a second specimen was not radiographed as per Dr. Horvath.
[2023-08-28 06:06] VITALS: BMI 19.3
[2023-08-28 06:26] VITALS: BP 181/64; PULSE 79; RESP 16; TEMP 36.3; O2SAT 100
[2023-08-28] MEDS: Lactated Ringers 1,000 ML 100 ML IVCONT (06:29)
--- NOTE | 2023-08-28 07:23 | MHC.SHP ---
Pre-Procedural Eval Section A Date of Service: 08/28/23 The patient is an INPATIENT: No Changes since office visit: Yes Cold of Flu in the past 2 weeks, Yes New Medical Problems, Yes Changes in Medication and Yes Patient answered all questions The History & Physical has been completed within 30 days and I have reviewed it.: Yes Section B Chief Complaint: Malignant neoplasm of unspecified site of unspecif Allergies: Allergies Allergy/AdvReac Type Severity Reaction Status Date / Time Iodinated Contrast Media Allergy Severe ANAPHYLAXIS Verified 08/28/23 06:14 [IV CONTRAST] ibuprofen Allergy Intermediate swelling Verified 08/28/23 06:14 morphine Allergy Intermediate confusion/d Verified 08/28/23 06:14 isorientati onh codeine Allergy Unknown Unknown Verified 08/28/23 06:14 Plan I have reviewed the history and physical and performed a pertinent physical examination on my patient. No changes have occurred unless specified. Time Spent With Patient Time: Total time managing care of this patient today ____ minutes.
--- NOTE | 2023-08-28 09:32 | W.PM.OPN ---
Operative Note Operative Note Date of Service: 08/28/23 Narrative: Preop diagnosis: Right breast invasive ductal carcinoma Postop diagnosis: The same Procedure: Lumpectomy, right breast, with Hologic localizer, with sentinel node biopsy using Mag trace surgeon: Isaías Horvath MD physical laboratory assistant: JALEN Andrade The patient is an 83-year-old female with a recent diagnosis of invasive ductal carcinoma. She is here for lumpectomy of the right breast with sentinel node biopsy. She had undergone Hologic localization last week for the lump. She understood the planned procedure as well as the risks, benefits, and alternatives She was brought to the operating room. She was placed supine under anesthesia via laryngeal mask airway. The right arm was abducted to expose the axilla. I injected the subareolar area with Magtrace. We then proceeded to do breast massaged for 5 minutes. The right chest including the axilla prepped and draped in the usual sterile fashion. A surgical time-out was done. The patient received cefazolin 2 g IV preoperatively. Using the Hologic localizer, proceeded to identify the area of the skin says that the RF Clip. I infiltrated this area with lidocaine 1%. I made a curvilinear incision using blade 15 on the right upper outer quadrant. This incision was carried down through the full-thickness of the skin subcutaneous fat using electrocautery. I then proceeded to use the curved Rojo scissors to dissect through breast tissue around the area detected by the localizer. We therefore periodically used the localizer to orient our dissection. We had to change our Hologic localizer probe at some point because of inconsistent readings. Eventually, with careful dissection along with guidance using the probe, I was able to see the original biopsy clip on the lateral margin but the RF clip was noted to be more lateral to this and was at the age of the specimen. I completed excision of this lumpectomy specimen and this was sent for immediate gross examination. I labeled the lateral margins with a long stitch and the superior margin with a short stitch. We were able to visualize the RF clip as well on this lateral margins so we proceeded to excise more of this lateral margin and this was sent as additional specimen and labeled as additional lateral margins. Reray of the specimen in the OR showed the original biopsy clip to be in the specimen. The RF clip was with the 2nd specimen which was the additional lateral margin. I then proceeded to locate the sentinel node. We used the Magtrace localizer probe for high signals in the axilla.Since the patient had a small breast and the incision was close to the axilla itself, I used this original excision site to access the axilla. We used the Mag trace probe to scan the axilla. We had inconsistent signals so we had to spend a long time scanning the axilla to look for sentinel node. Eventually, I as able to palpate a lymph node in the area. This was excised and ex vivo scanning of this showed a count of 305 on the Mag trace probe. The pathologist had called to state that the superior margins may be close so I excised more of this margins and this was sent as additional margins . We observed for hemostasis. Once hemostasis was confirmed, we irrigated. I reapposed the breast tissue with Polysorb 3-0 sutures. Skin closure was achieved with Polysorb 4-0 subcuticular running stitch. The area was infiltrated with Marcaine 0.5% for postop analgesia. Dressings were applied. The procedure was completed. She tolerated the procedure well. There were no immediate complications. Initial and final counts of sponges and instruments were correct. Estimated blood loss was about 50 cc. The patient was extubated without difficulty and transferred to the recovery room with stable vital signs. Breast [place] Node Biopsy Substrate(s) used for sentinel node biopsy in the non-neoadjuvant setting: Radiotracer All significantly radioactive nodes were removed, if radionuclide was used as the substrate for localization: Yes All palpably suspicious nodes were removed, if present: Yes If clips were placed in pathology-involved nodes, those nodes were identified and removed: Yes General Surg. - Synoptic Notes Breast [place] Node Biopsy Substrate(s) used for sentinel node biopsy in the non-neoadjuvant setting: Radiotracer All significantly radioactive nodes were removed, if radionuclide was used as the substrate for localization: Yes All palpably suspicious nodes were removed, if present: Yes If clips were placed in pathology-involved nodes, those nodes were identified and removed: Yes
[2023-08-28 09:45] VITALS: BP 130/52; PULSE 52; RESP 10; TEMP 36.4; O2SAT 98
[2023-08-28 09:50] VITALS: BP 139/56; PULSE 58; RESP 10; O2SAT 100
[2023-08-28 09:55] VITALS: BP 154/57; PULSE 55; RESP 12; O2SAT 100
[2023-08-28 10:00] VITALS: BP 136/58; PULSE 65; RESP 14; TEMP 36.6; O2SAT 100
[2023-08-28 10:15] VITALS: BP 150/70; PULSE 67; RESP 16; TEMP 36.6; O2SAT 99
== END 2023-08-28 11:12 | disposition home or self-care (01) ==
PROVIDERS: PCP Internal Medicine; Visit Provider Surgery
PROC: (CPT 19301; principal; 2023-08-28 07:30)
DX: C50.911 Malignant neoplasm of unspecified site of right female breast (principal); Z85.3 Personal history of malignant neoplasm of breast; Z90.12 Acquired absence of left breast and nipple; I10 Essential (primary) hypertension; E78.00 Pure hypercholesterolemia, unspecified; Z79.899 Other long term (current) drug therapy; Z91.041 Radiographic dye allergy status; Z88.5 Allergy status to narcotic agent; Z88.8 Allergy status to other drugs, medicaments and biological substances; Z90.49 Acquired absence of other specified parts of digestive tract; Z98.890 Other specified postprocedural states
CPT/HCPCS: 19301; 38525; 38900; 88307; 88329; 88341; 88342; J0665; J0690; J2405; J2704; J3010

== ENCOUNTER → 2023-08-28 06:01 | Outpatient (BNV) | payer MEDICARE, OTHER, SELFPAY | PROVIDERS: PCP Internal Medicine; Visit Provider Surgery | DX: C50.911 Malignant neoplasm of unspecified site of right female breast (principal) | CPT/HCPCS: 19301; 38525; 38900 ==

== ENCOUNTER 2023-09-11 09:37 | Outpatient (AMB) | payer MEDICARE, OTHER, SELFPAY ==
--- NOTE | 2023-09-11 09:49 | A.OFFVIS_ITS ---
Intake Vital Signs 09/11/23 09:56 Weight 101 lb BP 183/83 H Blood Pressure Location Rt radial Position Sitting Pulse 71 Intake Visit Reasons: S/P Rt breast lumpectomy w/localizer, SN Intake Note: This patient presents for a post-op assessment status post Lumpectomy, right breast, with Hologic localizer, with sentinel node biopsy using Mag trace. 08/28/2023 Patient c/o; reports no complaints at this time pertaining to surgery. 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 She had undergone right breast lumpectomy and sentinel biopsy last 08/28/2023. She tolerated procedure well. She currently denies significant complaints and feels well overall. [facility] Medical History Elevated cholesterol History of left breast cancer Invasive ductal carcinoma of breast, female Breast calcification, right HTN (hypertension) High cholesterol Surgical History History of lumpectomy of right breast (~08/28/23) Hx of excision of mass Hx of right breast biopsy H/O discectomy Hx of cholecystectomy History of modified radical mastectomy Family History Daughter Breast cancer Son Skin cancer Social History Household Members: Spouse Housing: House Alcohol intake: current Alcohol intake frequency: holidays/special occasions only Comment: NOT INDICATED Patient Tobacco Use Status: Never used Tobacco service: No Current occupational status: employed [employer] Const Denies chills and Denies fever(s) Card Denies chest pain, Denies dyspnea and Denies dyspnea on exertion Resp Denies cough, Denies dyspnea and Denies dyspnea on exertion GI Denies hematochezia and Denies change in bowel habits Denies hematuria Musc Denies back pain and Denies limited range of motion Neuro Denies focal weakness and Denies convulsions Psych Denies depression and Denies mood swings Physical Exam Vital Signs: Last Vital Signs Pulse 71 09/11/23 09:56 BP 183/83 H 09/11/23 09:56 Const General: comfortable and no acute distress Chest Other: Incision well healed, not infected, no hematoma, no discharge Assessment & Plan Assessment & Plan (1) Invasive ductal carcinoma of breast, female: Code(s): C50.919 - Malignant neoplasm of unspecified site of unspecified female breast Plan: Status post lumpectomy and sentinel biopsy. She had a T1 N0 invasive ductal carcinoma. Her surgical site has healed well She has been seen by the oncologist. 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 I had remind her to continue to follow-up with oncologist I will see her again in the office in about 6 months. Coding Level of Care Code Global (49435) Diagnoses Invasive ductal carcinoma of breast, female C50.919
[2023-09-11 09:56] VITALS: BP 183/83; PULSE 71
== END 2023-09-11 10:16 | disposition home or self-care (01) ==
PROVIDERS: PCP Internal Medicine; Visit Provider Surgery
DX: C50.919 Malignant neoplasm of unspecified site of unspecified female breast (principal)
CPT/HCPCS: 99024

== ENCOUNTER → 2023-09-11 09:37 | Outpatient (BNVA) | payer MEDICARE, OTHER, SELFPAY | PROVIDERS: PCP Internal Medicine; Visit Provider Surgery | DX: C50.911 Malignant neoplasm of unspecified site of right female breast (principal) | CPT/HCPCS: 99212 ==

== ENCOUNTER 2024-02-08 09:28 | Outpatient (REF) | payer MEDICARE, OTHER, SELFPAY ==
[2024-02-08 11:08] LABS: MANUAL DIFF FLAG NO
[2024-02-08 11:12] LABS: Basophils Absolute Auto 0.1 X10*3/uL (0.0-0.2); Eosinophils Absolute Auto 0.1 X10*3/uL (0.0-0.4); Eosinophils Percent Auto 1.9 % (0-4); Hematocrit 38.6 % (37.0-47.0); Hemoglobin 12.7 g/dl (12.0-16.0); Imm Gran Abs Auto 0.01 X10*3/uL (0.00-0.03); Imm Gran Pct Auto 0.2 % (0.0-0.4); Lymphocytes Absolute Auto 1.6 X10*3/uL (1.2-4.9); Lymphocytes Percent Auto 33.4 % (20-40); Mean Corpuscular HGB Conc 32.9 g/dl (31.0-35.0); Mean Corpuscular Volume 97.2 fL (80.0-98.0); Mean Platelet Volume 10.8 fL (9.4-12.3); Monocytes Absolute Auto 0.5 X10*3/uL (0.1-1.2); Monocytes Percent Auto 10.8 % (2-11); Neutrophils Absolute Auto 2.5 x10*3/uL (2.0-8.3); Neutrophils Percent Auto 52.7 % (45-73); Platelet Count 258 X10*3/uL (160-400); Red Blood Count 3.97 X10*6/uL (4.20-5.50); Red Cell Distribution Width 13.2 % (11.0-16.0); White Blood Count 4.8 X10*3/uL (4.8-10.8)
[2024-02-08 11:56] LABS: Alanine Aminotransferase 13 U/L (0-31); Alkaline Phosphatase 58 U/L (39-117); Anion Gap 13 (12-20); Aspartate Amino Transferase 17 U/L (5-31); Bilirubin Total 0.6 mg/dL (0.0-1.0); Blood Urea Nitrogen 14 mg/dL (9-16); Calcium 10.1 mg/dL (8.4-10.2); Carbon Dioxide 27 mmol/L (22-29); Chloride 106 mmol/L (96-108); Cholesterol 153 mg/dL (<200); Estimated Glomerular Filt Rate > 60; Glucose Fasting 110 mg/dL (60-99); HDL Cholesterol 66 mg/dL (>40); LDL Cholesterol Calculated 69 mg/dL (<100); Potassium 4.8 mmol/L (3.3-5.1); Sodium 141 mmol/L (135-145); Total Protein 7.4 g/dL (6.5-8.0); Triglycerides 92 mg/dL (<150)
[2024-02-08 12:16] LABS: Thyroid Stimulating Hormone 0.86 uIU/mL (0.32-4.0); Vitamin D 25-OH Total 79.6 ng/mL (>30)
== END 2024-02-08 09:29 | disposition home or self-care (01) ==
LOC: HO.HMGCLDS 09:28
PROVIDERS: PCP Internal Medicine; Visit Provider Internal Medicine
DX: I10 Essential (primary) hypertension (principal); E78.00 Pure hypercholesterolemia, unspecified; C50.911 Malignant neoplasm of unspecified site of right female breast; Z17.0 Estrogen receptor positive status [ER+]
CPT/HCPCS: 36415; 80053; 80061; 82306; 84443; 85025

== ENCOUNTER 2024-03-09 08:35 | Outpatient (AMB) | payer MEDICARE, OTHER, SELFPAY ==
--- NOTE | 2024-03-09 08:56 | A.OFFVIS_ITS ---
Vital Signs 03/09/24 09:00 Height 5 ft 1 in Weight 106 lb BMI 20.0 Intake Visit Reasons: Breast exam, 6 month follow up Intake Note: This patient presents for a six month follow-up breast examination assessment. Patient c/o; reports no breast complaints at this time. 07/29/2023 MM Page Makeup System Operator Required: No Accompanied by: Spouse Allergies Iodinated Contrast Media [IV CONTRAST] Allergy (Severe, Verified 03/09/24 09:00) ANAPHYLAXIS ibuprofen Allergy (Intermediate, Verified 03/09/24 09:00) swelling morphine Allergy (Intermediate, Verified 03/09/24 09:00) confusion/disorientationh codeine Allergy (Unknown, Verified 03/09/24 09:00) Unknown HPI HPI Breast exam, 6 month follow up: Details: She had undergone right breast lumpectomy and sentinel biopsy last 08/28/2023. She tolerated procedure well. She currently denies significant complaints and feels well overall. She had a T1 N0 invasive ductal carcinoma, ERPR positive. She denies any complaints at this time. 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 [facility] Medical History (Updated 03/09/24 @ 09:07 by Isaías Horvath MD) History of breast cancer Elevated cholesterol History of left breast cancer Invasive ductal carcinoma of breast, female Breast calcification, right HTN (hypertension) High cholesterol Surgical History History of lumpectomy of right breast (~08/28/23) Hx of excision of mass Hx of right breast biopsy H/O discectomy Hx of cholecystectomy History of modified radical mastectomy Family History Daughter Breast cancer Son Skin cancer Social History Household Members: Spouse Housing: House Alcohol intake: current Alcohol intake frequency: holidays/special occasions only Comment: NOT INDICATED Patient Tobacco Use Status: Never used Tobacco service: No Current occupational status: employed [employer] Systems Const Denies chills and Denies fever(s) Card Denies chest pain, Denies dyspnea and Denies dyspnea on exertion Resp Denies cough, Denies dyspnea and Denies dyspnea on exertion GI Denies hematochezia and Denies change in bowel habits Denies hematuria Musc Denies back pain and Denies limited range of motion Neuro Denies focal weakness and Denies convulsions Psych Denies depression and Denies mood swings Physical Exam Const General: comfortable and no acute distress Chest Other: Right breast with no palpable masses, no axillary lymphadenopathy on both sides, left mastectomy site without any palpable mass the chest wall Resp Effort & Inspection: normal respiratory effort Cardio Rate: regular rate GI Palpation (GI): Soft to palpation Assessment & Plan Assessment & Plan (1) History of breast cancer: Code(s): Z85.3 - Personal history of malignant neoplasm of breast Category: Medical Plan: Status post lumpectomy for a T1 N0 invasive ductal cancer on the right side last July 2023. She continues to do well. She has no palpable breast masses in the right I reminded her that she is due for another mammogram for the right breast in June,. I will see her in the office thereafter. She continues to follow up with Dr. Flynn as well. She is currently not on any hormonal treatment and did not undergo radiation for the right breast. Coding Level of Care Code Est Pt Level 3 (06453) Diagnoses History of breast cancer Z85.3
== END 2024-03-09 09:09 | disposition home or self-care (01) ==
PROVIDERS: PCP Internal Medicine; Visit Provider Surgery
DX: Z85.3 Personal history of malignant neoplasm of breast (principal)
CPT/HCPCS: 99213

== ENCOUNTER → 2024-03-09 08:35 | Outpatient (BNVA) | payer MEDICARE, OTHER, SELFPAY | PROVIDERS: PCP Internal Medicine; Visit Provider Surgery | DX: Z85.3 Personal history of malignant neoplasm of breast (principal) | CPT/HCPCS: 99212 ==

== ENCOUNTER 2024-08-05 08:48 | Outpatient (AMB) | payer MEDICARE, OTHER, SELFPAY ==
[2024-08-05 08:52] VITALS: BMI 18.0
--- NOTE | 2024-08-05 08:52 | A.OFFVIS_ITS ---
Vital Signs 08/05/24 08:52 Height 5 ft 1 in Weight 95 lb 2 oz BMI 18.0 Intake Visit Reasons: Breast exam, 5 month follow up Intake Note: This patient presents for five month breast examination assessment. Pt c/o; reports no breast complaints. 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 Accompanied by: Spouse Allergies Iodinated Contrast Media [IV CONTRAST] Allergy (Severe, Verified 08/05/24 09:01) ANAPHYLAXIS ibuprofen Allergy (Intermediate, Verified 08/05/24 09:01) swelling morphine Allergy (Intermediate, Verified 08/05/24 09:01) confusion/disorientationh codeine Allergy (Unknown, Verified 08/05/24 09:01) Unknown Medication List - Last Reconciled 08/05/24 by Isaías Horvath MD ascorbic acid (vitamin C) (Vitamin C) 1 mg PO DAILY atorvastatin 1 tab PO DAILY cholecalciferol (vitamin D3) (Vitamin D3) 50 mcg PO DAILY chondroitin sulfate A sodium 400 mg PO DAILY losartan 1 tab PO DAILY mecobalamin (vitamin B12) (B12 Active) 1,000 mcg PO DAILY multivitamin 1 tab PO DAILY HPI HPI Breast exam, 5 month follow up: Details: She is here for follow-up for her right breast cancer. had undergone right breast lumpectomy and sentinel biopsy last 08/28/2023. She had a T1 N0 invasive ductal carcinoma, ERPR positive. She denies any complaints at this time. 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 [facility] Medical History History of breast cancer Elevated cholesterol History of left breast cancer Invasive ductal carcinoma of breast, female Breast calcification, right HTN (hypertension) High cholesterol Surgical History History of lumpectomy of right breast (~08/28/23) Hx of excision of mass Hx of right breast biopsy H/O discectomy Hx of cholecystectomy History of modified radical mastectomy Family History Daughter Breast cancer Son Skin cancer Social History Household Members: Spouse Housing: House Alcohol intake: current Alcohol intake frequency: holidays/special occasions only Comment: NOT INDICATED Patient Tobacco Use Status: Never used Tobacco service: No Current occupational status: employed Review of Systems Const Denies chills and Denies fever(s) Card Denies chest pain, Denies dyspnea and Denies dyspnea on exertion Resp Denies cough, Denies dyspnea and Denies dyspnea on exertion GI Denies hematochezia and Denies change in bowel habits Denies hematuria Musc Denies back pain and Denies limited range of motion Neuro Denies focal weakness and Denies convulsions Psych Denies depression and Denies mood swings Physical Exam Vital Signs: BMI result Body Mass Index 18.0 Const General: comfortable and no acute distress Orientation/consciousness: patient oriented x3 Neck Neck: Yes no lymphadenopathy Chest Other: Left mastectomy site without any palpable mass; Right breast without any palpable mass, no axillary lymphadenopathy Resp Auscultation: clear to auscultation bilaterally Cardio Rhythm: regular rhythm GI Palpation (GI): Soft to palpation, nontender and no guarding Neuro General: patient oriented x3 Assessment & Plan Assessment & Plan (1) History of breast cancer: Code(s): Z85.3 - Personal history of malignant neoplasm of breast Category: Medical Plan: She continues to do well after lumpectomy for the right breast. She did have an early stage cancer so no further imaging touch this is being planned at this time. She is being followed by the oncologist as well. She had refused hormonal treatment. I will see her again in the office in about 6 months. Coding Level of Care Code Est Pt Level 3 (77281) Complex EM visit Add On [id number] Diagnoses History of breast cancer Z85.3
== END 2024-08-05 09:30 | disposition home or self-care (01) ==
LOC: HO.HGS 08:48
PROVIDERS: PCP Internal Medicine; Visit Provider Surgery
DX: Z85.3 Personal history of malignant neoplasm of breast (principal)
CPT/HCPCS: 99213; G2211

== ENCOUNTER → 2024-08-05 08:48 | Outpatient (BNVA) | payer MEDICARE, OTHER, SELFPAY | PROVIDERS: PCP Internal Medicine; Visit Provider Surgery | DX: Z85.3 Personal history of malignant neoplasm of breast (principal); Z98.890 Other specified postprocedural states | CPT/HCPCS: 99212 ==

== ENCOUNTER 2025-02-03 09:00 | Outpatient (AMB) | payer MEDICARE, OTHER, SELFPAY ==
--- NOTE | 2025-02-03 09:12 | MHC.OFFVIS ---
Vital Signs 02/03/25 09:19 Height 5 ft 1 in Weight 97 lb BMI 18.3 BP 168/70 H Blood Pressure Location Rt brachial Position Sitting Pulse 81 Intake Visit Reasons: Breast exam, 6 month follow up Intake Note: Patient here for 6m follow up breast exam. Patient c/o: no concerns. Denies pain, rash, nipple discharge. HX: Right breast invasive ductal carcinoma. Facing Machine Operator Required: No Accompanied by: Spouse Allergies Iodinated Contrast Media [IV CONTRAST] Allergy (Severe, Verified 02/03/25 09:19) ANAPHYLAXIS ibuprofen Allergy (Intermediate, Verified 02/03/25 09:19) swelling morphine Allergy (Intermediate, Verified 02/03/25 09:19) confusion/disorientationh codeine Allergy (Unknown, Verified 02/03/25 09:19) Unknown HPI HPI Breast exam, 6 month follow up: Details: She is here for follow-up for her right breast cancer. had undergone right breast lumpectomy and sentinel biopsy last 08/28/2023. She had a T1 N0 invasive ductal carcinoma, ERPR positive. She says she is not on any hormonal treatment. She denies any complaints at this time. She just retired from work about 6 months ago. [facility] Medical History History of breast cancer Elevated cholesterol History of left breast cancer Invasive ductal carcinoma of breast, female Breast calcification, right HTN (hypertension) High cholesterol Surgical History History of lumpectomy of right breast (~08/28/23) Hx of excision of mass Hx of right breast biopsy H/O discectomy Hx of cholecystectomy History of modified radical mastectomy Family History Daughter Breast cancer Son Skin cancer Social History Household Members: Spouse Housing: House Alcohol intake: current Alcohol intake frequency: holidays/special occasions only Comment: NOT INDICATED Patient Tobacco Use Status: Never used Tobacco service: No Current occupational status: employed Review of Systems Const Denies chills and Denies fever(s) Card Denies chest pain, Denies dyspnea and Denies dyspnea on exertion Resp Denies cough, Denies dyspnea and Denies dyspnea on exertion GI Denies hematochezia and Denies change in bowel habits Denies hematuria Musc Denies back pain and Denies limited range of motion Neuro Denies focal weakness and Denies convulsions Psych Denies depression and Denies mood swings Physical Exam Vital Signs: Last Vital Signs Pulse 81 02/03/25 09:19 BP 168/70 H 02/03/25 09:19 BMI result Body Mass Index 18.3 Const General: comfortable and no acute distress Orientation/consciousness: patient oriented x3 Neck Neck: Yes no lymphadenopathy Chest Other: Mastectomy on the left chest wall without any palpable mass Right breast without any palpable mass, no axillary lymphadenopathy on either side Resp Auscultation: clear to auscultation bilaterally Cardio Rhythm: regular rhythm GI Palpation (GI): Soft to palpation, nontender and no guarding Neuro General: patient oriented x3 Assessment & Plan Assessment & Plan (1) History of breast cancer: Code(s): Z85.3 - Personal history of malignant neoplasm of breast Category: Medical Plan: Current exam does not suggest any palpable mass on the right breast. She is doing very well overall. I told her that I will see her again in the office in about 6 months. She says she no longer sees the oncologist. Coding Level of Care Code Est Pt Level 3 (82685) Complex EM visit Add On G2211 Diagnoses History of breast cancer Z85.3
[2025-02-03 09:19] VITALS: BP 168/70; PULSE 81; BMI 18.3
== END 2025-02-03 09:33 | disposition home or self-care (01) ==
LOC: HO.HGS 09:00
PROVIDERS: PCP Internal Medicine; Visit Provider Surgery
DX: Z85.3 Personal history of malignant neoplasm of breast (principal)
CPT/HCPCS: 99213; G2211

== ENCOUNTER → 2025-02-03 09:00 | Outpatient (BNVA) | payer MEDICARE, OTHER, SELFPAY | PROVIDERS: PCP Internal Medicine; Visit Provider Surgery | DX: Z85.3 Personal history of malignant neoplasm of breast (principal) | CPT/HCPCS: 99212 ==

== ENCOUNTER 2025-03-16 08:55 | Outpatient (AMB) | payer MEDICARE, OTHER, SELFPAY ==
[2025-03-16 09:03] VITALS: BP 140/62; PULSE 80; RESP 12; TEMP 36.1; O2SAT 98; BMI 18.9
--- NOTE | 2025-03-16 09:03 | MHC.PC.OV ---
Vital Signs 03/16/25 09:03 Height 4 ft 11.45 in Weight 95 lb BMI 18.9 BP 140/62 H Respiration 12 Pulse 80 Pulse Source Pulse Oximeter Temp 97.0 F Temp Source Temporal Artery Scan Pulse Oximetry (%) 98 Oxygen Delivery Method Room Air Intake Visit Reasons: 6 Month Follow Up Major Account Representative Required: No Accompanied by: Self / Same As Patient Allergies Iodinated Contrast Media [IV CONTRAST] Allergy (Severe, Verified 03/16/25 09:03) ANAPHYLAXIS ibuprofen Allergy (Intermediate, Verified 03/16/25 09:03) swelling morphine Allergy (Intermediate, Verified 03/16/25 09:03) confusion/disorientationh codeine Allergy (Unknown, Verified 03/16/25 09:03) Unknown Tobacco use date assessed: 03/16/25 Fall risk assessment: No Falls in past year Last assessed Fall Risk: 03/16/25 Dental Screening Dental Screen Date: 03/16/25 Did you have a dental visit in the last 12 months?: No Did you have a dental problem in the last 6 months where you did not have access to dental care?: No Was dental information given to patient?: Patient has dentist (pt has dentures) [facility] Medical History (Updated 03/16/25 @ 09:22 by Kedar Beckwith MD) History of breast cancer Elevated cholesterol History of left breast cancer Invasive ductal carcinoma of breast, female Breast calcification, right HTN (hypertension) High cholesterol Surgical History History of colonoscopy (~10/23/10) History of lumpectomy of right breast (~08/28/23) Hx of excision of mass Hx of right breast biopsy H/O discectomy Hx of cholecystectomy History of modified radical mastectomy Family History Daughter Breast cancer Son Skin cancer Social History (Updated 03/16/25 @ 09:13 by RYANNE Jennings) Household Members: Spouse Housing: House Alcohol intake: current Alcohol intake frequency: holidays/special occasions only Patient Tobacco Use Status: Never used Tobacco service: No Current occupational status: retired Cognitive needs: No Hearing needs: No Vision needs: Yes (rx glasses) Questionnaire PHQ-9 Over the last 2 weeks, how often have you been bothered by any of the following problems? 1. Little interest or pleasure in doing things: not at all 2. Feeling down, depressed, or hopeless: not at all 3. Trouble falling or staying asleep, or sleeping too much: not at all 4. Feeling tired or having little energy: not at all 5. Poor appetite or overeating: not at all 6. Feeling bad about yourself - or that you are a failure or have let yourself or your family down: not at all 7. Trouble concentrating on things, such as reading the newspaper or watching television: not at all 8. Moving or speaking so slowly that other people could have noticed. Or the opposite - being so fidgety or restless that you have been moving around a lot more than usual: not at all 9. Thoughts that you would be better off or of hurting yourself in some way: not at all Total score: 0 Source: Developed by Drs. Faraz Welch, Drea Horton, Emmett Schafer and colleagues, with an educational taiwo from [employer]. Thrive Questionnaire Date Thrive assessed: 03/16/25 I am a: Patient What is your living situation today?: I have a steady place to live Within the past 12 months, did the food you bought not last and you didn't have the money to get more?: Never true Within the past 12 months, did you worry whether your food would run out before you got money to buy more?: Never true Do you have trouble paying for medicines?: No Do you have trouble getting transportation to medical appointments?: No Do you have trouble paying your heating and electricity bill?: No Do you have trouble taking care of your child, family member or friend?: No Do you have trouble with day-to-day activities such as bathing, preparing meals, shopping, managing finances, etc.?: No Are you currently unemployed and looking for a job?: No Are you interested in more education?: No Please select the resources that you would like help with: None THRIVE Score: 0 AUDIT C Alcohol Use Questionnaire (AUDIT-C) 1. How often do you have a drink containing alcohol?: Monthly or less 2. How many drinks containing alcohol do you have on a typical day when you are drinking?: 1 or 2 3. How often do you have six or more drinks on one occasion?: Never Total Score: 1 AUBRIE-7 AMB Questionnaire AUBRIE-7 Date AUBRIE - 7 assessed: 03/16/25 Feeling nervous, anxious, or on edge: 0 = Not at all Not being able to stop or control worryin = Not at all Worrying too much about different things: 0 = Not at all Trouble relaxin = Not at all Being so restless that it is hard to sit still: 0 = Not at all Becoming easily annoyed or irritable: 0 = Not at all Feeling afraid as if something awful might happen: 0 = Not at all Total AUBRIE-7 score (0-4 normal; 5-9 mild; 10-14 moderate; 15-21 severe): 0 Source: Developed by Drs. Faraz Welch, Drea Horton, Emmett Schafer and colleagues, with an educational taiwo from [employer]. Physical exam (Primary Care) Vital Signs: Last Vital Signs Temp 97.0 F 03/16/25 09:03 Pulse 80 03/16/25 09:03 Resp 12 03/16/25 09:03 BP 140/62 H 03/16/25 09:03 Pulse Ox 98 03/16/25 09:03 Oxygen Delivery Method Room Air 03/16/25 09:03 BMI result Body Mass Index 18.9 Tobacco/Smoking Status: Tobacco use Status Tobacco use date assessed 03/16/25 03/16/25 09:13 Patient Tobacco Use Status Never used Tobacco 03/16/25 09:13 PHQ-9: PHQ-9 Score PHQ-9: Total score 0 03/16/25 09:13 Thrive Assessment: Date of Thrive Assessment Date Thrive assessed 03/16/25 03/16/25 09:13 Const General: cooperative and healthy appearing Nutritional Appearance: well nourished Orientation/consciousness: patient oriented x3 Limitations: no limitations HENMT Head: Yes normal to inspection Eyes General: appearance normal, both eyes and all related structures Neck Neck: Yes normal visual inspection Chest Chest palpation & inspection: normal palpation of entire chest wall Resp Effort & Inspection: normal respiratory effort Neuro General: patient oriented x3 Coding Level of Care Code New Pt Level 4 (12773) Complex EM visit Add On G2211 Diagnoses HTN (hypertension) I10 High cholesterol E78.00 Invasive ductal carcinoma of breast, female C50.919 Assessment & Plan Assessment & Plan (1) HTN (hypertension): Code(s): I10 - Essential (primary) hypertension Category: Medical Plan: BP in range. Currently on no meds. (2) High cholesterol: Code(s): E78.00 - Pure hypercholesterolemia, unspecified Category: Medical Plan: BW has been ordered. Will call with results (3) Invasive ductal carcinoma of breast, female: Code(s): C50.919 - Malignant neoplasm of unspecified site of unspecified female breast Category: Medical Plan: Condition is stable. Plan History of Present Illness - The patient is an 85-year-old female presenting for her yearly checkup. - Health Maintenance: Patient has no immediate concerns but seeks routine evaluation of her health status. - She maintains an active lifestyle, independent with driving, household activities, and community engagement. - No significant health issues were reported, and blood work is scheduled for fasting evaluation. - She lives with her and son, indicating social support is stable. - Patient conducts routine physical activity, has moderate alcohol intake, and continues to maintain an overall healthy lifestyle. Social History - Employment History: Previously worked at [email or web address] for over 22 years. - Living Situation: Resides with her and son. - Substance Use: Denies smoking; consumes alcohol occasionally (one karina while dining out). - Activities of Daily Living: Remains independent in activities, including driving at night and performing household tasks. - Lifestyle: Active lifestyle, no reported falls, maintains a regular sleep schedule. - No reported healthcare directives; handles healthcare decisions. Review of Systems - General: Denies any current concerns. - Cardiovascular: Denies any symptoms. - Respiratory: Denies any symptoms. - Gastrointestinal: Denies any symptoms. - Neurological: Denies issues with driving, vision, or sleep. - Musculoskeletal: Denies issues with gait, falls, or mobility. Physical Exam General: Cooperative and healthy appearing Nutritional Appearance: Well nourished Orientation/consciousness: Patient oriented x3 Limitations: No limitations Head: Normal to inspection General: Appearance normal, both eyes and all related structures Neck: Normal visual inspection Chest: Normal palpation of entire chest wall Respiratory: N ormal respiratory effort Neurology: Patient oriented x3, gait is okay, no falls reported Results Plan 1. Health Maintenance - Blood work is planned, with instructions to proceed fasting. - Patient directed to the [facility] for convenience. - Advance care directive forms provided; patient to discuss with her . - Six-month follow-up is scheduled. Discussion Notes The patient and I discussed her current health status, which appears stable, and no new concerns were raised. She agreed to complete fasting blood work at [facility], emphasizing her preference for this location. We reviewed the importance of having an advanced care directive, and I provided her with the necessary forms to discuss with her . The patient was informed about returning in six months for continued monitoring and health maintenance. Patient Instructions - Fast after midnight before getting your blood work. - Visit [facility] for blood tests. - Discuss the advance care directive forms with your . - Return for follow-up in six months. Orders: Orders Complete Blood Count no Diff Today C50.919 - Malignant neoplasm of unspecified site of unspecified female breast, E78.00 - Pure hypercholesterolemia, unspecified, I10 - Essential (primary) hypertension UA and rflx microscopic Today C50.919 - Malignant neoplasm of unspecified site of unspecified female breast, E78.00 - Pure hypercholesterolemia, unspecified, I10 - Essential (primary) hypertension Basic Metabolic Panel Today C50.919 - Malignant neoplasm of unspecified site of unspecified female breast, E78.00 - Pure hypercholesterolemia, unspecified, I10 - Essential (primary) hypertension Lipid Panel Today C50.919 - Malignant neoplasm of unspecified site of unspecified female breast, E78.00 - Pure hypercholesterolemia, unspecified, I10 - Essential (primary) hypertension Liver Panel Today C50.919 - Malignant neoplasm of unspecified site of unspecified female breast, E78.00 - Pure hypercholesterolemia, unspecified, I10 - Essential (primary) hypertension
== END 2025-03-16 09:23 | disposition home or self-care (01) ==
LOC: HO.HMCSH 08:55
PROVIDERS: PCP Internal Medicine; Visit Provider Internal Medicine
DX: I10 Essential (primary) hypertension (principal); E78.00 Pure hypercholesterolemia, unspecified; C50.919 Malignant neoplasm of unspecified site of unspecified female breast

== ENCOUNTER → 2025-03-16 08:55 | Outpatient (BNVA) | payer MEDICARE, OTHER, SELFPAY | PROVIDERS: PCP Internal Medicine; Visit Provider Internal Medicine | DX: I10 Essential (primary) hypertension (principal); E78.00 Pure hypercholesterolemia, unspecified; C50.919 Malignant neoplasm of unspecified site of unspecified female breast | CPT/HCPCS: 99202 ==